=== PATIENT | male | born 1960 | race Caucasian/White ===

== ENCOUNTER 2017-02-19 19:52 | Emergency (ER) | payer OTHER ==
[~2017-02-19] VITALS: Ht 180.3 cm; Wt 81.6 kg
[2017-02-19 20:05] VITALS: BP 182/112
[2017-02-19] MEDS: diphenhydrAMINE 50 MG/ML VIAL IM ONE (22:25)
[2017-02-19] MEDS: HYDROmorphone PFS 2 MG/ML SYR IM ONE (22:26)
[2017-02-19] MEDS: DEXAMETHASONE 10 MG/ML VIAL IM ONE (22:26)
[2017-02-20 00:07] VITALS: BP 157/108
== END 2017-02-20 00:06 | disposition short-term general hospital (02) ==
LOC: MED 19:52
DX: S06.5X9A Traumatic subdural hemorrhage with loss of consciousness of unspecified duration, initial encounter (principal); G43.909 Migraine, unspecified, not intractable, without status migrainosus; Z98.890 Other specified postprocedural states; X58.XXXA Exposure to other specified factors, initial encounter; Y93.89 Activity, other specified; Y92.89 Other specified places as the place of occurrence of the external cause; Y99.8 Other external cause status
CPT/HCPCS: 70450; 96372; 99285; J1100; J1170; J1200

== ENCOUNTER 2017-12-04 15:00 | Emergency (ER) | payer OTHER ==
[~2017-12-04] VITALS: Ht 180.3 cm; Wt 81.6 kg
[2017-12-04 15:12] VITALS: BP 141/96
[2017-12-04] MEDS ORDERED: diphenhydrAMINE 50 MG/ML VIAL IM ONE (16:15)
[2017-12-04] MEDS ORDERED: traMADol 50 MG TAB PO ONE (16:15)
[2017-12-04] MEDS ORDERED: PROCHLORPERAZINE 10 MG/2 ML VIAL IM ONE (16:15)
[2017-12-04] MEDS ORDERED: MEPERIDINE 50 MG/ML SYR IM ONE (17:15)
[2017-12-04 19:54] VITALS: BP 140/92
== END 2017-12-04 19:54 | disposition home or self-care (01) ==
LOC: MED 15:00
DX: G43.909 Migraine, unspecified, not intractable, without status migrainosus (principal); R03.0 Elevated blood-pressure reading, without diagnosis of hypertension; I10 Essential (primary) hypertension; E78.00 Pure hypercholesterolemia, unspecified
CPT/HCPCS: 70450; 96372; 99284; J0780; J1200; J2175

== ENCOUNTER 2017-12-27 18:01 | Inpatient (IN) | payer OTHER ==
[~2017-12-27] VITALS: Ht 180.3 cm; Wt 85.3 kg
[2017-12-27 18:10] VITALS: BP 158/100
--- NOTE | 2017-12-27 18:12 | NUR ---
PT AMBULATES TO BED 7
--- NOTE | 2017-12-27 18:15 | NUR ---
PT. CAME INTO THE ED DUE TO NUMBNESS OF L SIDE. PER PATIENT AND , APPROX. AROUND 1700, PATIENT UNABLE TO TALK,TONGUE NUMBNESS,LT. ARM NUMBNESS AND FACIAL NUMBNESS LASTED FOR 20 MIN.AND HEADACHE. DENIES NAUSEA/VOMITING. ON ARRIVAL TO ER,SPEECH CLEAR,NO FACIAL DROOP,EQUAL STRENGHT TO UPPER AND LOWER EXTREMITIES. STILL WITH HEADACHE.FACIAL SYMMETRY PRESENT. PT. HAS STEADY GAIT. RR EVEN AND UNLABORED. PUPIL EQUAL ROUND AND REACTIVE TO LIGHT BILAT. 3MM. AT BEDSIDE. WILL CONTINUE TO MONITOR. ER MD NOTIFIED.
--- NOTE | 2017-12-27 18:18 | NUR ---
DR ADAIR EVALUATING PT AT BEDSIDE
--- NOTE | 2017-12-27 18:24 | NUR ---
CODE BRAIN INITIATED TO CT.SCAN MONITORED,OXYGEN 2LNC NO DISTRESS
--- NOTE | 2017-12-27 18:24 | NUR ---
PT TAKEN TO CT SCAN
[2017-12-27] MEDS ORDERED: GEMF600T5 PO (18:54)
[2017-12-27] MEDS ORDERED: PROP20TA29 PO (18:54)
[2017-12-27 19:04] LABS: BASOPHILS # (AUTO) 0.1 K/uL (0.00-0.22); BASOPHILS % (AUTO) 1.5 % (0.0-2.0); EOSINOPHILS # (AUTO) 0.2 K/uL (0-0.4); EOSINOPHILS % (AUTO) 3.2 % (0.0-4.0); HEMATOCRIT 41.6 % (36-52); HEMOGLOBIN 14.1 g/dL (12.0-18.0); LYMPHOCYTES # (AUTO) 2.1 K/uL (2.0-11.5); MEAN CORPUSCULAR HEMOGLOBIN 32 pg (27-31); MEAN CORPUSCULAR HGB CONC 34 g/dL (33-37); MEAN CORPUSCULAR VOLUME 92.8 fL (80-94); MONOCYTES # (AUTO) 0.5 K/uL (0.8-1.0); MONOCYTES % (AUTO) 8.2 % (1.7-9.3); NEUTROPHILS # (AUTO) 3.1 K/uL (1.8-7.7); NEUTROPHILS % (AUTO) 52.1 % (42.2-75.2); PLATELET COUNT (AUTO) 196 K/uL (140-450); RED BLOOD CELL COUNT(AUTO) 4.48 MIL/uL (4.20-6.10); RED CELL DISTRIBUTION WIDTH 13.9 % (11.6-13.7); WHITE BLOOD COUNT (AUTO) 5.9 K/uL (4.8-10.8)
[2017-12-27 19:12] LABS: APPEARANCE,URINE CLEAR (CLEAR); BILIRUBIN,URINE NEGATIVE (NEGATIVE); BLOOD, URINE NEGATIVE (NEGATIVE); COLOR,URINE YELLOW (YELLOW); LEUKOCYTE ESTERASE ,URINE NEGATIVE (NEGATIVE); NITRITE, URINE NEGATIVE (NEGATIVE); UGLUCOSE NEGATIVE (NEGATIVE)
[2017-12-27 19:15] LABS: ANION GAP 10.8 (8-16); CARBON DIOXIDE 27.1 mmol/L (21-32); CREATININE 0.9 mg/dL (0.7-1.3); POTASSIUM 3.9 mmol/L (3.5-5.1)
--- NOTE | 2017-12-27 19:15 | NUR ---
Pt report given to AMBER PRIETO . Transfer of care at this time.
[2017-12-27] MEDS: NACL 0.45% 1,000 ML IV SCH (19:17)
--- NOTE | 2017-12-27 19:17 | NUR ---
UTRASOUND WITH PT AT BEDSIDE
--- NOTE | 2017-12-27 19:18 | NUR ---
PT SITTING UP IN BED, VITALS STABLE, FAMILY AT BEDSIDE
[2017-12-27 19:21] LABS: ALBUMIN 4.1 g/dL (3.4-5.0); TOTAL BILIRUBIN 0.6 mg/dL (0.0-1.0)
[2017-12-27 19:24] LABS: PROTHROMBIN TIME 9.9 secs (10.8-13.4)
--- NOTE | 2017-12-27 19:45 | NUR ---
Admited to TELEMETRY. Will go to room 123B. Belongings list completed. Report to GERARD CLARK.
--- NOTE | 2017-12-27 19:45 | NUR ---
Pt report given to GERARD CLARK FROM TELE. Transfer of care at this time. PT VITALS STABLE
[2017-12-27 20:00] VITALS: BP 147/90
--- NOTE | 2017-12-27 20:00 | NUR ---
PT ARRIVED VIA GURNEY TO UNIT WITH SIGNIFICANT OTHER GABRIELA AT BEDSIDE. RECEIVED REPORT BY ER NURSE-IDA CLARK. PT AMBULATED TO BED IN BEDROOM. AOX4- ON 3L/NC, IV LEFT AC 20G. SKIN INTACT- LEFT LEG SCAB ON ELDRIDGE NOTED. PT C/O HEADACHE- MIGRAINE SUFFERER. NO PAIN MEDICATIONS ORDERED-WILL CALL MD FOR ORDERS. DISCUSSED PLAN OF CARE AND PT VERBALIZED UNDERSTANDING. VITAL SIGNS TAKEN AND TOLERATED WELL. NO S/S OF RESPIRATORY DISTRESS OR DISCOMFORT NOTED AT THIS TIME. BED IN LOWEST POSITION, BED BREAKS ON, BOTH SIDE RAILS UP, BED ALARM ON DUE TO HX: FALLS AND QUESTIONABLE BEHAVIOR AT NIGHT NOTED BY SIGNIFICANT OTHER- IN NEED OF RE-ORIENTATION AT MIDNIGHT DUE TO CONFUSION SPELLS. BED SIDE TABLE AND CALL LIGHT ARE WITHIN REACH. WILL CONTINUE TO MONITOR.
--- NOTE | 2017-12-27 21:05 | NUR ---
DR. CHEN FIELD WORKER FOR DR. ELDRIDGE. RECEIVED ORDERS FOR TRAMADOL FOR PAIN, TYLENOL FOR PAIN/FEVER AND ZOFRAN FOR NAUSEA.
[2017-12-27] MEDS ORDERED: ACETAMINOPHEN 325 MG TAB PO PRN (21:35)
[2017-12-27] MEDS ORDERED: traMADol 50 MG TAB PO PRN (21:35)
--- NOTE | 2017-12-27 21:50 | NUR ---
TRAMADOL GIVEN FOR MIGRAINE HEADACHE. PT TOLERATED WELL. NO S/S OF RESPIRATORY DISTRESS. WILL CONTINUE TO MONITOR.
[2017-12-28] VITALS: BP 139/78
--- NOTE | 2017-12-28 | NUR ---
VITAL SIGNS TAKEN AND TOLERATED WELL. NO S/S OF RESPIRATORY DISTRESS. PT C/O PAIN FROM MIGRAINE HEADACHE STATING THE MEDICATION THAT WAS GIVEN DID NOT WORK. PT STATED HE USUALLY TAKES RIZATRIPTAN FOR MIGRAINES AT HOME BUT HAS BEEN GIVEN DEMEROL OR MORPHINE DURING HOSPITAL STAYS AND THEY TEND TO WORK. WILL CALL MD FOR NEW ORDERS. WILL CONTINUE TO MONITOR.
[2017-12-28] MEDS: ONDANSETRON 4 MG/2 ML VIAL IVP PRN ×2 (00:09→08:49)
[2017-12-28] MEDS: MORPHINE SULFATE 4 MG/ML SYR IVP PRN ×2 (01:02→08:49)
--- NOTE | 2017-12-28 01:05 | NUR ---
MORPHINE GIVEN IVP FOR PAIN. PT TOLERATED WELL. NO S/S OF RESPIRATORY DISTRESS NOTED AT THIS TIME. WILL CONTINUE TO MONITOR.
--- NOTE | 2017-12-28 02:00 | NUR ---
PT SLEEPING AT THIS TIME. NO S/S OF RESPIRATORY DISTRESS OR DISCOMFORT NOTED AT THIS TIME. WILL CONTINUE TO MONITOR.
[2017-12-28 04:00] VITALS: BP 124/77
--- NOTE | 2017-12-28 04:00 | NUR ---
VITAL SIGNS TAKEN AND TOLERATED WELL. NO S/S OF RESPIRATORY DISTRESS OR DISCOMFORT NOTED AT THIS TIME. WILL CONTINUE TO MONITOR.
--- NOTE | 2017-12-28 06:00 | NUR ---
PT RESTING IN BED. NO S/S OF RESPIRATORY DISTRESS OR DISCOMFORT NOTED AT THIS TIME. WILL CONTINUE TO MONITOR.
--- NOTE | 2017-12-28 07:26 | NUR ---
PATIENT HAS BEEN SCREENED AND CATEGORIZED MODERATE RISK. PATIENT WILL BE SEEN WITHIN 3-5 DAYS OF ADMISSION. 12/30- [address], [facility]
--- NOTE | 2017-12-28 07:40 | NUR ---
RECEIVED PT ON BED AAOX4. NO SOB NOTED. NO C/O PAIN AT THIS TIME. IV TO LT AC PATENT AND INTACT. CHEST CLEAR DIMINISHED AIR ENTRY TO THE BASES, OTHERWISE CLEAR. ABDOMEN SOFT, BOWEL SOUNDS PRESENT. NO EDEMA NOTED. INSTRUCTED PT TO CALL FOR ASSISTANCE, CALL LIGHT WITHIN REACH, PT VERBALIZED UNDERSTANDING.
--- NOTE | 2017-12-28 07:41 | NUR ---
ENDORSED PT CARE TO DAY SHIFT NURSE GIA FOR CONTINUITY OF CARE.
[2017-12-28 08:00] VITALS: BP 115/75
--- NOTE | 2017-12-28 10:00 | NUR ---
PT HAS BEEN AMBULATING TO THE BATHROOM WITH STANDBY ASSIST. ACTIVITY TOLERATED WELL.
[2017-12-28 12:00] VITALS: BP 111/72
[2017-12-28] MEDS ORDERED: TOPIRAMATE 25 MG TAB PO SCH (12:30)
--- NOTE | 2017-12-28 12:30 | NUR ---
PT SEEN BY DR. GUTIÉRREZ WITH NEW ORDERS.
[2017-12-28] MEDS: HYDROcodone/APAP 5/325 MG 1 TAB TAB PO PRN ×2 (13:39→19:54)
--- NOTE | 2017-12-28 14:00 | NUR ---
PT SEEN BY DR. ELDRIDGE WITH NEW ORDERS.
[2017-12-28] MEDS: NACL 0.45% 1,000 ML IV SCH (15:47)
[2017-12-28 16:00] VITALS: BP 119/78
--- NOTE | 2017-12-28 16:45 | NUR ---
PT RESTING. NO SOB NOTED. NO COMPLAINTS MADE.
--- NOTE | 2017-12-28 17:35 | NUR ---
PT AMBULATING IN THE HALLWAY WITH STANDBY ASSIST. ACTIVITY TOLERATED WELL.
--- NOTE | 2017-12-28 19:06 | NUR ---
PT TALKING TO GIRLFRIEND AT THE BEDSIDE. NO COMPLAINTS MADE. WILL ENDORSE TO NEXT SHIFT NURSE FOR CONTINUITY OF CARE.
--- NOTE | 2017-12-28 19:06 | NUR ---
RECEIVED REPORT AT BEDSIDE FOR CONTINUITY OF CARE FROM ZHANE CLARK DAYSHIFT NURSE, PT IN STABLE CONDITION.
--- NOTE | 2017-12-28 19:53 | NUR ---
PT IN LOW BED, HOB UP 45% SIDE RAILS UP X 2 AND BED ALARM ON. PT A0X 4, EYES EQUAL AND REACTIVE TO LIGHT. 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 PT LUNGS CLEAR ANSD BOWEL SOUNDS PRESENT. PT IS ABLE TO AMBULATE TO TOILET AND BACK. STANDBY ASSISTANCE PROVIDED. PT HAS C/O OF HEADACHE 12/27 AND WAS GIVEN NORCO 5/325. WILL CONTINUE TO MONITOR PT FOR PAIN RELIEF.
[2017-12-28 20:00] VITALS: BP 131/84
--- NOTE | 2017-12-28 20:48 | NUR ---
GAVE REPORT TO RAYMUNDO CLARK NIGHTSHIFT NURSE DUE TO CHANGE OF ASSIGNMENT, ENDORSED CONCERNS OF PT AND PT IN BED IN STABLE CONDITION.
[2017-12-28] MEDS: TOPIRAMATE 25 MG TAB PO SCH (20:51)
--- NOTE | 2017-12-28 21:00 | NUR ---
SCHEDULE MEDICATION GIVEN AND TOLERATED WELL. PATIENT AMBULATORY AND COOPERATIVE TO TREATMENT. DISCUSS PLAN OF CARE AND VERBALIZED UNDERSTANDING. ALL NEED ATTENDED. NO S/S OF DISTRESS NOTED AT THIS TIME. FALL PRECAUTION APPLIED. CALL LIGHTS WITHIN REACH. WILL CONTINUE TO MONITOR.
[2017-12-28] MEDS ORDERED: ZOLPIDEM 5 MG TAB PO PRN (21:30)
[2017-12-29] VITALS: BP 125/74
--- NOTE | 2017-12-29 00:48 | NUR ---
V/S TAKEN AND RECORDED. FALL PRECAUTION APPLIED. NO S/S OF DISTRESS NOTED. CALL LIGHT WITHIN REACH. WILL CONTINUE TO MONITOR.
--- NOTE | 2017-12-29 02:00 | NUR ---
CHECKED PATIENT ASLEEP ON BED. NO S/S OF DISTRESS NOTED AT THIS TIME. FALL PRECAUTION APPLIED. CALL LIGHT WITHIN REACH. WILL CONTINUE TO MONITOR.
[2017-12-29 04:00] VITALS: BP 128/80
--- NOTE | 2017-12-29 04:49 | NUR ---
PATIENT ASLEEP ON BED BUT EASILY AROUSABLE. NO S/S OF DISTRESS NOTED AT THIS TIME.FALL PRECAUTION IMPLEMENTED. CALL LIGHT WITHIN REACH. WILL CONTINUE TO MONITOR.
--- NOTE | 2017-12-29 07:30 | NUR ---
RECEIVED PT ON BED AAOX4. NO SOB NOTED. NO C/O PAIN AT THIS TIME. IV TO LT AC PATENT AND INTACT. CHEST CLEAR, DIMINISHED AIR ENTRY TO THE BASES, OTHERWISE CLEAR. ABDOMEN SOFT, BOWEL SOUNDS PRESENT. NO EDEMA NOTED. INSTRUCTED PT TO CALL FOR ASSISTANCE, CALL LIGHT WITHIN REACH, PT VERBALIZED UNDERSTANDING.
--- NOTE | 2017-12-29 07:35 | NUR ---
ENDORSEMENT GIVEN AT BEDSIDE TO AM SHIFT NURSE FOR CONTINUITY OF CARE. PATIENT IN STABLE CONDITION.
[2017-12-29 08:00] VITALS: BP 136/95
[2017-12-29] MEDS: HYDROcodone/APAP 5/325 MG 1 TAB TAB PO PRN (08:08)
[2017-12-29] MEDS: TOPIRAMATE 25 MG TAB PO SCH (08:09)
--- NOTE | 2017-12-29 09:00 | NUR ---
PT CONSUMED 75% OF BREAKFAST SERVED. FOOD TOLERATED WELL.
--- NOTE | 2017-12-29 11:45 | NUR ---
PT AMBULATING IN THE HALLWAY. ACTIVITY TOLERATED. PT STEADY. NO C/O NUMBNESS OF LEFT ARM SINCE THE START OF SHIFT.
[2017-12-29 12:00] VITALS: BP 143/81
--- NOTE | 2017-12-29 14:30 | NUR ---
PT SEEN BY DR. ELDRIDGE WITH NEW ORDERS, ALL QUESTIONS ADDRESSED. PT VERBALIZED UNDERSTANDING.
[2017-12-29] MEDS ORDERED: ACET-2869 PO (15:00)
[2017-12-29] MEDS ORDERED: TOP25 PO (15:01)
--- NOTE | 2017-12-29 15:20 | NUR ---
DISCHARGE INSTRUCTIONS AND PRESCRIPTIONS GIVEN TO PT WHICH VERBALIZED FULL UNDERSTANDING OF THE TEACHINGS GIVEN AND THE NEED TO FOLLOW UP WITH NEUROLOGIST AND MRI IN 7 DAYS. ARM BANDS AND IV REMOVED, CANNULA TIP INTACT.
--- NOTE | 2017-12-29 15:30 | NUR ---
PT WHEELED TO THE PARKING LOT IN STABLE CONDITION. NO SOB NOTED. NO COMPLAINTS MADE. PT IS D/C HOME WITH SIGNIFICANT OTHER.
--- NOTE | 2017-12-30 10:12 | NUR ---
RETRO CM NOTE ER 'S NOTES, H&P, CONSULTATION NOTE FAXED TO [facility] [phone]
== END 2017-12-29 15:30 | disposition home or self-care (01) | DRG 53 ==
LOC: MED 18:01 → MTU 19:22
PROVIDERS: ADMIT Hospitalist; ATTEND Hospitalist
DX: R56.9 Unspecified convulsions (principal); I62.00 Nontraumatic subdural hemorrhage, unspecified; G45.9 Transient cerebral ischemic attack, unspecified; I10 Essential (primary) hypertension; Z85.9 Personal history of malignant neoplasm, unspecified; G43.909 Migraine, unspecified, not intractable, without status migrainosus; Z82.3 Family history of stroke; Z87.891 Personal history of nicotine dependence
CPT/HCPCS: 36415; 70450; 71045; 80053; 81003; 84484; 85025; 85610; 85730; 86886; 86900; 86901; 87081; 93005; 93880; 99285; J2270; J2405; Q0092

== ENCOUNTER 2018-07-19 17:40 | Emergency (ER) | payer OTHER ==
[~2018-07-19] VITALS: Ht 180.3 cm; Wt 81.6 kg
[~2018-07-19 17:40] MED LIST: GEMF600T5 PO; HYDR-5122 PO; TOP25 PO
[2018-07-19 17:44] VITALS: BP 195/106
[2018-07-19] MEDS ORDERED: MORPHINE SULFATE 4 MG/ML SYR IVP ONE ×2 (18:00→19:55)
[2018-07-19] MEDS ORDERED: ONDANSETRON 4 MG/2 ML VIAL IVP ONE (18:00)
--- NOTE | 2018-07-19 18:05 | NUR ---
57 Y/O M CAME TO ED WITH C/O LUQ ABDOMINAL PAIN. ACHING AND THROBBING SENSATION . EXPERIENCING SYMPTOMS FOR 5 HOURS. -N/V/D. ECCHYMOSIS TO L UPPER LEG. DENIES TRAUMA. NOTIFIED. WILL CONTINUE TO MONITOR. Addendum: 07/19/18 at 1807 by [facility] 57 Y/O M CAME TO ED WITH C/O LUQ ABDOMINAL PAIN. ACHING AND THROBBING SENSATION . EXPERIENCING SYMPTOMS FOR 5 HOURS. NAUSEA, NO VOMITTING. ECCHYMOSIS TO L UPPER LEG. DENIES TRAUMA. NOTIFIED. WILL CONTINUE TO MONITOR.
[2018-07-19 18:34] LABS: BASOPHILS # (AUTO) 0.1 K/uL (0.00-0.22); BASOPHILS % (AUTO) 0.5 % (0.0-2.0); EOSINOPHILS % (AUTO) 0.2 % (0.0-4.0); HEMATOCRIT 40.5 % (36-52); HEMOGLOBIN 13.9 g/dL (12.0-18.0); LYMPHOCYTES # (AUTO) 0.9 K/uL (2.0-11.5); LYMPHOCYTES % (AUTO) 8.3 % (20.5-51.1); MEAN CORPUSCULAR HEMOGLOBIN 32 pg (27-31); MEAN CORPUSCULAR HGB CONC 34 g/dL (33-37); MEAN CORPUSCULAR VOLUME 93.2 fL (80-94); MONOCYTES # (AUTO) 0.4 K/uL (0.8-1.0); MONOCYTES % (AUTO) 3.4 % (1.7-9.3); NEUTROPHILS # (AUTO) 9.5 K/uL (1.8-7.7); NEUTROPHILS % (AUTO) 87.6 % (42.2-75.2); PLATELET COUNT (AUTO) 152 K/uL (140-450); RED BLOOD CELL COUNT(AUTO) 4.35 MIL/uL (4.20-6.10); RED CELL DISTRIBUTION WIDTH 14.5 % (11.6-13.7); WHITE BLOOD COUNT (AUTO) 10.9 K/uL (4.8-10.8)
--- NOTE | 2018-07-19 18:45 | NUR ---
PT RETURNED FROM CT
[2018-07-19 18:55] LABS: PROTHROMBIN TIME 9.3 secs (10.8-13.4)
[2018-07-19 18:59] LABS: APPEARANCE,URINE CLEAR (CLEAR); BILIRUBIN,URINE NEGATIVE (NEGATIVE); BLOOD, URINE 2+ (NEGATIVE); COLOR,URINE YELLOW (YELLOW); LEUKOCYTE ESTERASE ,URINE NEGATIVE (NEGATIVE); NITRITE, URINE NEGATIVE (NEGATIVE); UGLUCOSE NEGATIVE (NEGATIVE)
[2018-07-19 19:01] LABS: ALBUMIN 4.1 g/dL (3.4-5.0); ANION GAP 13.4 (8-16); CARBON DIOXIDE 29.6 mmol/L (21-32); CREATININE 1.2 mg/dL (0.7-1.3)
[2018-07-19 19:02] LABS: RBC,URINE 11-20 (MOD) /HPF (0-5)
[2018-07-19 19:03] LABS: WBC,URINE 0-5 /HPF (0-5)
[2018-07-19] MEDS ORDERED: traMADol 50 MG TAB PO ONE (19:55)
[2018-07-19 21:58] VITALS: BP 157/84
--- NOTE | 2018-07-19 21:59 | NUR ---
Patient discharged with v/s stable. Written and verbal after care instructions given and explained. Patient alert, oriented and verbalized understanding of instructions. Ambulatory with steady gait. All questions addressed prior to discharge. ID band removed. Patient advised to follow up with PMD. Rx of TRAMADOL, MOTRIN given. Patient educated on indication of medication including possible reaction and side effects. Opportunity to ask questions provided and answered.
== END 2018-07-19 21:58 | disposition home or self-care (01) ==
LOC: MED 17:40
DX: S70.12XA Contusion of left thigh, initial encounter (principal); N20.1 Calculus of ureter; G43.909 Migraine, unspecified, not intractable, without status migrainosus; J45.909 Unspecified asthma, uncomplicated; Z85.841 Personal history of malignant neoplasm of brain; Z86.73 Personal history of transient ischemic attack (TIA), and cerebral infarction without residual deficits; Z79.891 Long term (current) use of opiate analgesic; Z79.899 Other long term (current) drug therapy; X58.XXXA Exposure to other specified factors, initial encounter; Y93.89 Activity, other specified; Y92.89 Other specified places as the place of occurrence of the external cause; Y99.8 Other external cause status
CPT/HCPCS: 36415; 74176; 80053; 81001; 83690; 85025; 85610; 85730; 96374; 96375; 96376; 99284; J2270; J2405

== ENCOUNTER 2021-11-01 19:47 | Emergency (ER) | payer SELFPAY ==
[~2021-11-01] VITALS: Ht 177.8 cm; Wt 79.8 kg
[2021-11-01 20:04] VITALS: BP 156/105
--- NOTE | 2021-11-01 21:15 | NUR ---
RECEIVED IN BED 12 WITH C/O RIGHT HIP PAIN S/P FALL ONTO CONCRETE LAST NIGHT. "IT FEELS LIKE NI BROKE SOMETHING IN MY PELVIS" PT STATES HE WENT TO BED AFTER FALL LAST NIGHT AND WHEN HE WOKE UP THIS MORNING PAIN WAS PRESENT AND HE HAD DIFFICULTY AMBULATING.
[2021-11-01] MEDS: KETOROLAC 60 MG/2 ML VIAL IM ONE (21:29)
--- NOTE | 2021-11-01 21:34 | NUR ---
Filiberto carcamo in [facility] - 11/01/21 at 2135 by ONEIL PT TAKEN TO XRAY
--- NOTE | 2021-11-01 21:34 | NUR ---
TO RADIOLOGY VIA W/C
--- NOTE | 2021-11-01 21:47 | NUR ---
PT RETURN FROM XRAY
[2021-11-01] MEDS ORDERED: HYDR-5191 PO (23:20)
[2021-11-01] MEDS ORDERED: NAPR-54 PO (23:20)
[2021-11-01 23:40] VITALS: BP 168/100
--- NOTE | 2021-11-01 23:40 | NUR ---
Patient discharged with v/s stable. Written and verbal after care instructions given and explained. Patient alert, oriented and verbalized understanding of instructions. Ambulatory with steady gait. All questions addressed prior to discharge. ID band removed. Patient advised to follow up with PMD. Rx of HYDROCODONE NAPROXEN given. Patient educated on indication of medication including possible reaction and side effects. Opportunity to ask questions provided and answered.
== END 2021-11-01 23:40 | disposition home or self-care (01) ==
LOC: MED 19:47
DX: S70.01XA Contusion of right hip, initial encounter (principal); W19.XXXA Unspecified fall, initial encounter; Y93.89 Activity, other specified; Y92.89 Other specified places as the place of occurrence of the external cause; Y99.8 Other external cause status
CPT/HCPCS: 73502; 96372; 99283; J1885

== ENCOUNTER 2023-05-12 15:27 | Emergency (ER) | payer OTHER ==
[~2023-05-12] VITALS: Ht 177.8 cm; Wt 81.6 kg
[~2023-05-12 15:27] MED LIST changes: +HYDR-5191 PO; +NAPR-54 PO
[2023-05-12 15:47] VITALS: BP 138/95; PULSE 81; RESP 14; TEMP 97.8; O2SAT 99
[2023-05-12] MEDS ORDERED: NACL 0.9% 1,000 ML IV SCH (16:45)
[2023-05-12 16:58] LABS: BASOPHILS # (AUTO) 0.1 K/uL (0.00-0.22); BASOPHILS % (AUTO) 0.9 % (0.0-2.0); HEMATOCRIT 41.1 % (36-52); HEMOGLOBIN 14.5 g/dL (12.0-18.0); LYMPHOCYTES % (AUTO) 13.6 % (20.5-51.1); MEAN CORPUSCULAR HEMOGLOBIN 33 pg (27-31); MEAN CORPUSCULAR HGB CONC 35 g/dL (33-37); MEAN CORPUSCULAR VOLUME 94.6 fL (80-94); MONOCYTES # (AUTO) 0.2 K/uL (0.8-1.0); MONOCYTES % (AUTO) 2.9 % (1.7-9.3); NEUTROPHILS # (AUTO) 5.9 K/uL (1.8-7.7); NEUTROPHILS % (AUTO) 82.6 % (42.2-75.2); PLATELET COUNT (AUTO) 205 K/uL (140-450); RED BLOOD CELL COUNT(AUTO) 4.34 MIL/uL (4.20-6.10); RED CELL DISTRIBUTION WIDTH 13.6 % (11.6-13.7); WHITE BLOOD COUNT (AUTO) 7.2 K/uL (4.8-10.8)
[2023-05-12 17:15] LABS: ANION GAP 12.8 (8-16); CALCIUM 8.2 mg/dL (8.5-10.1); CARBON DIOXIDE 27.4 mmol/L (21-32); CREATININE 1.7 mg/dL (0.6-1.3); POTASSIUM 3.2 mmol/L (3.5-5.1)
[2023-05-12 17:19] LABS: ALBUMIN 3.3 g/dL (3.4-5.0); BILIRUBIN,DIRECT 0.1 mg/dL (0.0-0.3); TOTAL BILIRUBIN 0.6 mg/dL (0.0-1.0); TOTAL PROTEIN, SERUM 7.3 g/dL (6.4-8.2)
[2023-05-12 18:39] LABS: APPEARANCE,URINE CLEAR (CLEAR); BILIRUBIN,URINE NEGATIVE (NEGATIVE); BLOOD, URINE 3+ (NEGATIVE); COLOR,URINE YELLOW (YELLOW); LEUKOCYTE ESTERASE ,URINE NEGATIVE (NEGATIVE); NITRITE, URINE NEGATIVE (NEGATIVE); PROTEIN,URINE TRACE (NEGATIVE); UGLUCOSE NEGATIVE (NEGATIVE); UROBILINOGEN,URINE 0.2 EU/dL (0.2 - 1)
[2023-05-12 18:51] LABS: FLU A ANTIGEN negative (NEGATIVE); FLU B ANTIGEN NEGATIVE (NEGATIVE)
[2023-05-12 19:19] LABS: RBC,URINE 80-100 /HPF (0-5); WBC,URINE NONE SEEN /HPF (0-5)
[2023-05-12 19:20] LABS: BACTERIA,URINE FEW /HPF (None Seen); SQUAMOUS EPITHELIAL CELL,UR None Seen /LPF (0-3 (FEW)); URIC ACID CRYSTALS,URINE 0-10 /HPF (None Seen)
[2023-05-12 19:53] VITALS: BP 149/99; PULSE 88; RESP 22; O2SAT 98
[2023-05-12] MEDS ORDERED: LEVOFLOXACIN 500 MG/D5W PREMIX 100 ML IV ONE (22:10)
[2023-05-12] MEDS ORDERED: CIPR500T4 PO (23:07)
== END 2023-05-12 23:20 | disposition home or self-care (01) ==
LOC: MED 15:27
DX: N39.0 Urinary tract infection, site not specified (principal); N40.0 Benign prostatic hyperplasia without lower urinary tract symptoms; Z20.822 Contact with and (suspected) exposure to COVID-19; J45.909 Unspecified asthma, uncomplicated; I10 Essential (primary) hypertension; Z86.73 Personal history of transient ischemic attack (TIA), and cerebral infarction without residual deficits; Z79.899 Other long term (current) drug therapy; Z79.2 Long term (current) use of antibiotics; Z79.1 Long term (current) use of non-steroidal anti-inflammatories (NSAID)
CPT/HCPCS: 36415; 74176; 80048; 80076; 81001; 83690; 85025; 87426; 87804; 96361; 96365; 99285; J1956; J7030